=== PATIENT | female | born 1995 | race Caucasian/White ===

== ENCOUNTER 2020-05-18 11:24 | Emergency (ER) | payer OTHER ==
[~2020-05-18] VITALS: Ht 170.2 cm; Wt 64.0 kg
[2020-05-18 11:42] VITALS: BP 137/87; Ht 170.2 cm; Wt 64.0 kg
== END 2020-05-18 12:04 | disposition left against medical advice (07) ==
LOC: ED 11:24
DX: Z53.21 Procedure and treatment not carried out due to patient leaving prior to being seen by health care provider (principal)